=== PATIENT | male | born 1955 | race Caucasian/White ===

== ENCOUNTER 2016-11-21 13:35 | Emergency (ER) | payer OTHER ==
[~2016-11-21] VITALS: Ht 175.3 cm; Wt 86.2 kg
[~2016-11-21 13:35] MED LIST: ACETAMINOPHEN-1 EAC1 PO; AGGRENOX CAPSU1 EACH PO; APAP650 PO; CIPROFLOXACIN500 M1 PO; FLONASE 0.05%50 MCG NASAL; KEFLEX500 MG PO; LAMOTRIGINE150 MG PO; LAMOTRIGINE200 MG PO; LIPITOR20 MG PO; NAPROSYN500 MG PO; NEXIUM 40 MG CA40 M1 PO; NEXIUM40 MG; NORCO 5-325 TA1 EACH PO; PLAVIX 75 MG TA75 MG; TAMSULOSIN HCL0.4 M1 PO; ZOFRAN ODT4 MG PO
[2016-11-21] MEDS ORDERED: NORCO 5-325 TA1 EACH PO (14:41)
[2016-11-21] MEDS ORDERED: SENOKOT-S1 TA1 PO (14:43)
[2016-11-21 15:08] VITALS: BP 118/60
== END 2016-11-21 15:09 | disposition home or self-care (01) ==
LOC: ER 13:35
DX: S20.212A Contusion of left front wall of thorax, initial encounter (principal); E78.5 Hyperlipidemia, unspecified; F10.99 Alcohol use, unspecified with unspecified alcohol-induced disorder; W18.39XA Other fall on same level, initial encounter; Y93.89 Activity, other specified; Y92.89 Other specified places as the place of occurrence of the external cause; Y99.8 Other external cause status

== ENCOUNTER 2017-03-20 12:00 | Emergency (ER) | payer OTHER ==
[~2017-03-20] VITALS: Ht 180.3 cm; Wt 86.2 kg
[~2017-03-20 12:00] MED LIST changes: +SENOKOT-S1 TA1 PO
[2017-03-20 15:11] VITALS: BP 129/75
== END 2017-03-20 15:12 | disposition home or self-care (01) ==
LOC: ER 12:00
DX: H61.23 Impacted cerumen, bilateral (principal); E78.00 Pure hypercholesterolemia, unspecified; G40.909 Epilepsy, unspecified, not intractable, without status epilepticus; F10.99 Alcohol use, unspecified with unspecified alcohol-induced disorder

== ENCOUNTER 2017-10-26 13:39 | Emergency (ER) | payer OTHER ==
[~2017-10-26] VITALS: Ht 172.7 cm; Wt 86.2 kg
[2017-10-26 13:44] VITALS: BP 116/64
[2017-10-26] MEDS ORDERED: INDERAL LA60 MG PO (14:00)
== END 2017-10-26 14:38 | disposition home or self-care (01) ==
LOC: ER 13:39
DX: H61.23 Impacted cerumen, bilateral (principal); E78.00 Pure hypercholesterolemia, unspecified